=== PATIENT | male | born 1970 | race Caucasian/White ===

== ENCOUNTER 2016-11-06 02:43 | Emergency (ER) | payer OTHER ==
[2016-11-06] MEDS ORDERED: NORMODYNE IV ONE (03:02)
[2016-11-06] MEDS ORDERED: TYLENOL PO ONE (03:03)
[2016-11-06 03:11] LABS: Basophils % (Auto) 0.3 % (0.0-1.8); Eosinophils % (Auto) 0.1 % (0.0-4.3); Hematocrit 43.6 % (35.5-45.6); Hemoglobin 15.5 gm/dl (11.8-15.2); Mean Corpuscular HGB Conc 36 % (32-34); Mean Corpuscular Hemoglobin 30 pg (28-32); Mean Corpuscular Volume 85 fl (84-94); Platelet Count 270 K/mm3 (140-440); Red Blood Count 5.16 M/mm3 (3.65-5.03); Red Cell Distribution Width 12.4 % (13.2-15.2); White Blood Count 10.1 K/mm3 (4.5-11.0)
[2016-11-06 03:22] LABS: INR 1.01 (0.87-1.13)
[2016-11-06 03:36] LABS: Creatine Kinase MB 1.3 ng/mL (0.0-4.0)
[2016-11-06 03:37] LABS: Anion Gap 21 mmol/L; Blood Urea Nitrogen 9 mg/dL (9-20); Calcium 8.9 mg/dL (8.4-10.2); Carbon Dioxide 25 mmol/L (22-30); Chloride 79.8 mmol/L (98-107); Creatine Kinase 58 units/L (55-170); Glucose 152 mg/dL (75-100); Potassium 3.5 mmol/L (3.6-5.0); Sodium 122 mmol/L (137-145)
--- NOTE | 2016-11-06 03:49 | Cat Scan Report ---
FINAL REPORT PROCEDURE: CT HEAD/BRAIN WO CON TECHNIQUE: Computerized tomography of the head was performed without contrast material. HISTORY: Syncope COMPARISON: No prior studies are available for comparison. FINDINGS: Skull and scalp: Normal. Paranasal sinuses: Normal. Ventricles and subarachnoid spaces: There is bilateral subarachnoid blood predominantly in the basilar cisterns slightly greater on the right. Findings suggest possible ruptured cerebral aneurysm of the right middle cerebral artery or basilar artery. There is no intra-axial, subdural or epidural hematoma.. There is mild ventricular dilatation. There is no ventricular asymmetry. Cerebrum: There is no intra-axial hemorrhage, edema, mass, mass effect or midline shift.. Cerebellum and brainstem: No evidence of hemorrhage, acute infarction or mass. IMPRESSION: There is subarachnoid hemorrhage as described. Cerebral aneurysm is suspected. Dr. Soto was notified by telephone at 3:40 a.m. [facility]
[2016-11-06] MEDS ORDERED: CARDENE DRIP 40 MG/200 ML 40 MG/200 ML BAG IV SCH (04:00)
[2016-11-06] MEDS ORDERED: KEPPRA 1,000 MG/NS 0.75% 100ML 1,000 MG/100 ML BAG IV ONE (04:34)
--- NOTE | 2016-11-06 04:36 | Emergency Department Report ---
HPI - General Chief Complaint: Syncope Time Seen by Provider: 11/06/16 03:05 - HPI HPI: The patient is a 46 yo male who presents for evaluation of headache and syncope. The patient reports headache since approximately 1 PM earlier today, constant since onset, 5/10 in severity, aching quality, developing after an episode of lightheadedness and syncope 30 minutes prior to headache onset. He states that he did not fall or strike examined the ground, denies any head injury, neck pain or stiffness, chest pain, dyspnea, paresthesias, lateralizing motor deficit, or other focal neurological deficit. ED Past Medical Hx - Past Medical History Previous Medical History?: Yes Hx Hypertension: Yes Additional medical history: Hep. B - Surgical History Past Surgical History?: No - Social History Smoking Status: Never Smoker Substance Use Type: None ED Review of Systems ROS: Stated complaint: HBP Other details as noted in HPI Constitutional: denies: fever ENT: denies: throat or neck pain Respiratory: denies: cough, shortness of breath Cardiovascular: denies: chest pain Endocrine: denies unexplained weight loss or gain Gastrointestinal: denies: abdominal pain, nausea Genitourinary: denies: dysuria Musculoskeletal: denies: leg swelling Skin: denies: rash Neurological: reports syndope and headache Hematological/Lymphatic: denies: easy bleeding or easy bruising Psych: denies sadness or hopelessness Physical Exam - Physical Exam Vital Signs: Vital Signs 11/06/16 11/06/16 11/06/16 02:46 03:40 03:45 Temperature 98.3 F 98.2 F Pulse Rate 68 72 72 Respiratory 18 17 Rate Blood Pressure 226/120 200/118 Blood Pressure 200/118 [Right] O2 Sat by Pulse 100 Oximetry 11/06/16 04:12 Temperature Pulse Rate Respiratory Rate Blood Pressure Blood Pressure 190/114 [Right] O2 Sat by Pulse Oximetry Physical Exam: General: well-nourished, well-developed, no acute distress Head: Normocephalic, atraumatic Eyes: normal sclera, EOMI, PERRL ENT: Mucous membranes are pink and moist Neck: trachea midline, neck supple, No neck stiffness, no cervical adenopathy Respiratory: Breath sounds equal bilaterally, no wheezing, rales, or rhonchi Cardio: S1 and S2 present, no murmurs, rubs, gallops, capillary refill is brisk Abdomen: Normoactive bowel sounds, soft abdomen, no rigidity, no guarding or rebound tenderness Chest WALL/Back: No tenderness to palpation of the chest wall, no CVA tenderness with percussion Musc: No pitting edema Skin: No rash Neuro: AOx3, no facial drooping, normal speech, no sensation motor deficit in the arms or legs, no coordination deficit, reflexes 2+ symmetric on DTR testing Psych: Normal affect ED Course Vital Signs 11/06/16 11/06/16 11/06/16 02:46 03:40 03:45 Temperature 98.3 F 98.2 F Pulse Rate 68 72 72 Respiratory 18 17 Rate Blood Pressure 226/120 200/118 Blood Pressure 200/118 [Right] O2 Sat by Pulse 100 Oximetry 11/06/16 04:12 Temperature Pulse Rate Respiratory Rate Blood Pressure Blood Pressure 190/114 [Right] O2 Sat by Pulse Oximetry ED Medical Decision Making - Lab Data Result diagrams: 11/06/16 02:55 11/06/16 02:55 - Medical Decision Making The patient was seen and examined by myself. The patient is placed on a monitoring engineer and continuous pulse ox. On initial evaluation, the patient was found to be in no distress. Evaluation orders were placed. The patient is given IV labetalol for elevated blood present on all for headache. Lab results are not concerning. CAT scan the head reveals subarachnoid hemorrhage and findings concerning for ruptured cerebral aneurysm. The patient started on a Cardene drip pressure control of blood pressure. [facility] was contacted. The on-call neurosurgeon agrees to accept the patient for transfer request administration of Keppra to the patient. The patient is a decision analyst Kera. The patient is transferred in serious condition. Critical care attestation.: If time is entered above; I have spent that time in minutes in the direct care of this critically ill patient, excluding procedure time. ED Disposition Clinical Impression: Hypertensive emergency, Subarachnoid hemorrhage due to ruptured aneurysm Acute nonintractable headache Qualifiers: Headache type: unspecified Qualified Code(s): R51 - Headache Disposition: DC/TX ANOTHER TYPE HEALTHCARE Is pt being admited?: No Does the pt Need Aspirin: No Condition: Critical Instructions: Hypertension (ED) Referrals: PRIMARY CARE [Primary Care Provider] - 3-5 Days Time of Disposition: 04:35
[2016-11-06] MEDS ORDERED: AMICAR IV ONE (05:00)
[2016-11-06] MEDS ORDERED: NACL 0.9% IV ONE (05:00)
[2016-11-06 05:16] VITALS: BP 154/99
== END 2016-11-06 05:44 | disposition other institution (70) ==
LOC: ED 02:43
DX: S06.6X0A Traumatic subarachnoid hemorrhage without loss of consciousness, initial encounter (principal); I10 Essential (primary) hypertension; R51 Headache; X58.XXXA Exposure to other specified factors, initial encounter; Y93.9 Activity, unspecified; Y99.9 Unspecified external cause status; Y92.9 Unspecified place or not applicable
CPT/HCPCS: 36415; 70450; 80048; 82550; 82553; 84484; 85025; 85610; 96365; 96375; 99291; J1953; J7050